=== PATIENT | female | born 1955 | race Caucasian/White ===

== ENCOUNTER → 2023-12-09 09:03 | Outpatient (REF) | payer MEDICARE, SELFPAY | LOC: HWRAD 09:03 | PROVIDERS: ATTENDING PHYSICIAN Internal Medicine | DX: Z12.31 Encounter for screening mammogram for malignant neoplasm of breast (principal); M81.0 Age-related osteoporosis without current pathological fracture | CPT/HCPCS: 77063; 77067; 77080 ==

== ENCOUNTER → 2024-02-08 07:14 | Outpatient (REF) | payer MEDICARE, SELFPAY ==
[2024-02-08 09:04] LABS: % Basophils 0.4 % (0-2); % Eosinophils 0.1 % (0-6); % Immature Granulocytes 0.1 % (0-0.5); % Lymphocytes 21.6 % (20.5-51.1); % Monocytes 8.4 % (1.7-9.3); % Neutrophils 69.4 % (42.2-75.2); Absolute Lymphocytes 1.6 10^3/uL (1.2-3.4); Absolute Monocytes 0.6 10^3/uL (0.1-0.6); Hematocrit 36.9 % (37.0-47.0); Hemoglobin 12.1 g/dL (12.0-16.0); Mean Corp Hgb Conc. 32.8 g/dL (33.0-37.0); Mean Corpuscular Hgb 32.8 pg (27.0-31.0); Mean Platelet Volume 10.8 fL (7.4-10.4); Nucleated Red Blood Cells % 0 %; Platelet Count 172 10^3/uL (130-400); Red Blood Cell Count 3.69 10^6/uL (4.20-5.40); Red Cell Dist. Width 13.2 % (11.5-14.5); White Blood Cell Count 7.3 10^3/uL (4.8-10.8)
[2024-02-08 09:23] LABS: ALT (SGPT) 16 U/L (0-35); AST (SGOT) 29 U/L (14-36); Albumin 4.2 g/dl (3.5-5.0); Alkaline Phosphatase 53 U/L (38-126); Blood Urea Nitrogen 17 mg/dl (7-17); Calcium 9.8 mg/dl (8.4-10.2); Carbon Dioxide 31 mmol/L (22-30); Chloride 100 mmol/L (98-107); Glucose 94 mg/dl (70-99); HDL Cholesterol 99 mg/dl; LDL Cholesterol, Calculated 77 mg/dl; Potassium 4.1 mmol/L (3.5-5.1); Sodium 137 mmol/L (135-145); Total Bilirubin 0.6 mg/dl (0.2-1.3); Total Cholesterol 196 mg/dl (50-199); Total Protein 7.1 g/dl (6.3-8.2); Triglyceride 101 mg/dl (10-149); Very Low Density Lipoprotein 20 mg/dl (0-30); eGFR > 60.00
[2024-02-08 09:25] LABS: C-Reactive Protein < 5.00 mg/L (0.0-10.00)
[2024-02-08 09:41] LABS: Vitamin D, 25-OH*** 30.8 ng/mL (30-80)
[2024-02-08 09:54] LABS: Cortisol, Random 2.4 ug/dl; TSH 1.52 uIU/ml (0.47-4.68)
[2024-02-09 10:26] LABS: Intact PTH 42.8 pg/ml (13.6-85.8)
[2024-02-11 05:30] LABS: Albumin 4.11 g/dL (3.75-5.01); Alpha 1 Globulin 0.24 g/dL (0.19-0.46); Alpha 2 Globulin 0.78 g/dL (0.48-1.05); Free Lambda Light Chains,Quant 7.18 mg/L (5.71-26.30); IgA 176 mg/dL (68-408); IgG 1013 mg/dL (768-1632); IgM 92 mg/dL (35-263); Immunofixation Electrophoresis IFE Done; Kappa/Lambda Fr Light Ratio 1.39 (0.26-1.65); Total Protein-Electrophoresis 6.9 g/dL (6.3-8.2)
== END ==
LOC: HWLAB 07:14
PROVIDERS: ATTENDING PHYSICIAN Physician Assistant; FAMILY PHYSICIAN Internal Medicine
DX: D80.1 Nonfamilial hypogammaglobulinemia (principal); E07.9 Disorder of thyroid, unspecified; E21.5 Disorder of parathyroid gland, unspecified; E27.8 Other specified disorders of adrenal gland; E55.9 Vitamin D deficiency, unspecified; M81.0 Age-related osteoporosis without current pathological fracture; E78.00 Pure hypercholesterolemia, unspecified
CPT/HCPCS: 36415; 80053; 80061; 82306; 82533; 82784; 83521; 83970; 84155; 84165; 84443; 85025; 86140; 86334

== ENCOUNTER → 2024-03-14 11:25 | Outpatient (REF) | payer MEDICARE, SELFPAY | LOC: RAD 11:25 | PROVIDERS: ATTENDING PHYSICIAN Internal Medicine | DX: Z13.6 Encounter for screening for cardiovascular disorders (principal) | CPT/HCPCS: 76770 ==

== ENCOUNTER → 2024-05-08 10:40 | Outpatient (REF) | payer MEDICARE, SELFPAY ==
[2024-05-08 13:13] LABS: Creatine Phosphokinase 99 U/L (30-135)
[2024-05-08 13:17] LABS: C-Reactive Protein < 5.00 mg/L (0.0-10.00)
[2024-05-08 13:31] LABS: Erythrocyte Sed Rate 16 mm/hour (0-20)
[2024-05-08 14:07] LABS: Vitamin B12 345 pg/ml (239-931)
== END ==
LOC: HWLAB 10:40
PROVIDERS: ATTENDING PHYSICIAN Internal Medicine Rheumatology; FAMILY PHYSICIAN Internal Medicine
DX: E53.8 Deficiency of other specified B group vitamins (principal); G89.29 Other chronic pain; M25.511 Pain in right shoulder; M25.512 Pain in left shoulder; M54.2 Cervicalgia; M81.0 Age-related osteoporosis without current pathological fracture
CPT/HCPCS: 36415; 72040; 82550; 82607; 85652; 86140

== ENCOUNTER 2024-09-15 06:20 | Day surgery (SDC) | payer MEDICARE, SELFPAY | END 2024-09-15 11:15 | disposition home or self-care (01) | LOC: GI 06:20 | PROVIDERS: ATTENDING PHYSICIAN Internal Medicine Gastroenterology | DX: Z12.11 Encounter for screening for malignant neoplasm of colon (principal); Z86.0100 Personal history of colon polyps, unspecified; K64.0 First degree hemorrhoids; K62.1 Rectal polyp | CPT/HCPCS: 45380; 88305 ==

== ENCOUNTER → 2024-10-02 12:42 | Outpatient (REF) | payer MEDICARE, SELFPAY | LOC: MRI 3T 12:42 | PROVIDERS: ATTENDING PHYSICIAN Orthopaedic Surgery Adult Reconstructive Orthopaedic Surgery; FAMILY PHYSICIAN Family Medicine | DX: M23.200 Derangement of unspecified lateral meniscus due to old tear or injury, right knee (principal) | CPT/HCPCS: 73721 ==

== ENCOUNTER → 2024-11-14 06:22 | Outpatient (REF) | payer MEDICARE, SELFPAY ==
[2024-11-14 07:13] LABS: Ionized Calcium 1.29 mMOL/L (1.15-1.33)
[2024-11-14 07:22] LABS: % Basophils 0.9 % (0-2); % Eosinophils 1.7 % (0-6); % Immature Granulocytes 0.2 % (0-0.5); % Lymphocytes 31.8 % (20.5-51.1); % Neutrophils 56.4 % (42.2-75.2); Absolute Eosinophils 0.1 10^3/uL (0-0.7); Absolute Lymphocytes 1.5 10^3/uL (1.2-3.4); Absolute Monocytes 0.4 10^3/uL (0.1-0.6); Absolute Neutrophils 2.6 10^3/uL (1.4-6.5); Hematocrit 40.5 % (37.0-47.0); Hemoglobin 13.4 g/dL (12.0-16.0); Mean Corp Hgb Conc. 33.1 g/dL (33.0-37.0); Mean Corpuscular Volume 99.8 fL (81.0-99.0); Mean Platelet Volume 11.1 fL (7.4-10.4); Nucleated Red Blood Cells % 0 %; Platelet Count 142 10^3/uL (130-400); Red Blood Cell Count 4.06 10^6/uL (4.20-5.40); Red Cell Dist. Width 12.8 % (11.5-14.5); White Blood Cell Count 4.7 10^3/uL (4.8-10.8)
[2024-11-14 07:49] LABS: ALT (SGPT) 14 U/L (0-35); AST (SGOT) 30 U/L (14-36); Albumin 4.2 g/dl (3.5-5.0); Alkaline Phosphatase 39 U/L (38-126); Blood Urea Nitrogen 21 mg/dl (7-17); Calcium 9.2 mg/dl (8.4-10.2); Carbon Dioxide 31 mmol/L (22-30); Chloride 101 mmol/L (98-107); Glucose 89 mg/dl (70-99); HDL Cholesterol 82 mg/dl; LDL Cholesterol, Calculated 90 mg/dl; Potassium 4.1 mmol/L (3.5-5.1); Sodium 140 mmol/L (135-145); Total Bilirubin 0.5 mg/dl (0.2-1.3); Total Cholesterol 184 mg/dl (50-199); Total Protein 6.7 g/dl (6.3-8.2); Triglyceride 62 mg/dl (10-149); Very Low Density Lipoprotein 12 mg/dl (0-30); eGFR > 60.00
[2024-11-14 07:52] LABS: Vitamin D, 25-OH*** 39.3 ng/mL (30-80)
[2024-11-14 09:03] LABS: Urine Albumin Negative (Neg - Trace); Urine Bilirubin Negative (Negative); Urine Character Slightly Cloudy (Clear); Urine Color Yellow; Urine Glucose Negative (Negative); Urine Ketone Negative (Negative); Urine Leukocyte 1+ (Negative); Urine Nitrite Negative (Negative); Urine Occult Blood Negative (Negative); Urine Urobilinogen Negative (Neg - 1+)
[2024-11-14 09:04] LABS: Glycohemoglobin (HgbA1c) 5.5 % (4.0-5.6)
[2024-11-14 09:16] LABS: Urine Squamous Cell >30 /LPF (Few)
[2024-11-14 09:17] LABS: Urine Bacteria Moderate (Negative); Urine Red Blood Cell 0-2 /HPF (0-2); Urine White Cell 0-2 /HPF (0-5)
[2024-11-14 11:17] LABS: Intact PTH 31.7 pg/ml (13.6-85.8)
== END ==
LOC: REG 06:22
PROVIDERS: ATTENDING PHYSICIAN Family Medicine; FAMILY PHYSICIAN Internal Medicine Rheumatology
DX: Z00.00 Encounter for general adult medical examination without abnormal findings (principal); E55.9 Vitamin D deficiency, unspecified; Z79.899 Other long term (current) drug therapy; M47.812 Spondylosis without myelopathy or radiculopathy, cervical region; M81.0 Age-related osteoporosis without current pathological fracture
CPT/HCPCS: 36415; 80053; 80061; 81003; 81015; 82306; 82330; 83036; 83970; 84443; 85025

== ENCOUNTER → 2024-12-19 12:15 | Outpatient (REF) | payer MEDICARE, SELFPAY | LOC: WDC 12:15 | PROVIDERS: ATTENDING PHYSICIAN Obstetrics & Gynecology; FAMILY PHYSICIAN Family Medicine | DX: Z12.31 Encounter for screening mammogram for malignant neoplasm of breast (principal) | CPT/HCPCS: 77063; 77067 ==

== ENCOUNTER → 2025-05-07 09:54 | Outpatient (REF) | payer MEDICARE, SELFPAY ==
[2025-05-07 10:53] LABS: ALT (SGPT) 14 U/L (0-35); AST (SGOT) 27 U/L (14-36); Albumin 4.2 g/dl (3.5-5.0); Alkaline Phosphatase 35 U/L (38-126); Blood Urea Nitrogen 17 mg/dl (7-17); Calcium 10.1 mg/dl (8.4-10.2); Carbon Dioxide 33 mmol/L (22-30); Chloride 105 mmol/L (98-107); Glucose 67 mg/dl (70-99); Potassium 4.2 mmol/L (3.5-5.1); Sodium 141 mmol/L (135-145); Total Protein 6.8 g/dl (6.3-8.2); eGFR > 60.00
== END ==
LOC: REG 09:54
PROVIDERS: ATTENDING PHYSICIAN Internal Medicine Rheumatology; FAMILY PHYSICIAN Family Medicine
DX: M47.812 Spondylosis without myelopathy or radiculopathy, cervical region (principal); M81.0 Age-related osteoporosis without current pathological fracture
CPT/HCPCS: 36415; 80053; 82330

== ENCOUNTER → 2025-07-28 08:40 | Outpatient (REF) | payer MEDICARE, SELFPAY ==
[2025-07-28 10:06] LABS: Lipase 84 U/L (23-300)
== END ==
LOC: REG 08:40
PROVIDERS: ATTENDING PHYSICIAN Family Medicine; REFERRING PHYSICIAN Internal Medicine Gastroenterology
DX: R10.84 Generalized abdominal pain (principal)
CPT/HCPCS: 36415; 83013; 83690

== ENCOUNTER → 2025-08-13 13:07 | Outpatient (REF) | payer MEDICARE, SELFPAY | LOC: WDC 13:07 | PROVIDERS: ATTENDING PHYSICIAN Obstetrics & Gynecology; FAMILY PHYSICIAN Family Medicine | DX: R92.2 Inconclusive mammogram (principal); R92.343 Mammographic extreme density, bilateral breasts | CPT/HCPCS: 76641 ==